=== PATIENT | female | born 1985 | race Caucasian/White ===

== ENCOUNTER 2016-04-11 07:24 | Inpatient (IN) | payer OTHER ==
[~2016-04-11] VITALS: Ht 167.6 cm; Wt 103.4 kg
[~2016-04-11 07:24] MED LIST: Docusate Sodium PO; Ibuprofen PO; Oxycodone/Acetaminophen PO; PREN-99 PO
[2016-04-11] MEDS ORDERED: Oxytocin 30 Units/500 mL LR Premix IV ONE (07:39)
[2016-04-11] MEDS ORDERED: Lactated Ringer's 1,000 ML IV PRN (07:42)
[2016-04-11] MEDS ORDERED: Lactated Ringer's 1,000 ML IV SCH (07:44)
[2016-04-11] MEDS ORDERED: Hemorrhage Kit, Post Partum XX ONE ×2 (07:45)
[2016-04-11] MEDS ORDERED: LANOlin HPA 7 Gm Ointment TOPICAL PRN (07:45)
[2016-04-11] MEDS ORDERED: Sodium Chloride LOK Flush 10 mL Syringe IVFLUSH PRN (07:45)
[2016-04-11] MEDS ORDERED: Witch Hazel-Glycerin Pads TOPICAL PRN (07:45)
[2016-04-11] MEDS ORDERED: Oxytocin 30 Units/500 mL LR 30 UNITS in IV Premix 1 EACH IV PRN (07:45)
[2016-04-11] MEDS ORDERED: Methylergonovine 0.2 mg/mL Inj IM PRN ×2 (07:45)
[2016-04-11] MEDS ORDERED: Oxytocin 10 Unit/mL Inj IM PRN ×2 (07:45)
[2016-04-11] MEDS ORDERED: Carboprost 250 mCg/mL Inj IM PRN ×2 (07:45)
[2016-04-11] MEDS ORDERED: Benzocaine (Dermoplast) 20% 60 Gm Spray TOPICAL PRN (07:45)
--- NOTE | 2016-04-11 08:02 | PCM.OBVAG ---
Vaginal Delivery Date of Service Apr 11, 2016 Pre Operative Diagnosis Pre Operative Diagnosis Term labor Post Operative Diagnosis Post Operative Diagnosis Vaginal after , delivered Procedure Obstetical Procedure: Normal Spontaneous Vaginal Delivery Patent Prosecution Attorney/Museum Librarian Provider and Museum Librarian: MD Susana Monique, Findings Obstetrical Findings: Jackson (Female), Cord (3 Vessel), Presentation (MALICK), 1 minute (9), 5 minutes (9), Placenta (Intact/Normal) Analgesia/Medications Procedural Analgesia: None Procedure Details Procedure Details Jinny is a 30yo G3 now P1102 who presented to the center via ambulance after she awoke with contractions at 5:00 on 04/11/16 which were initially 10 minutes apart, she then had sROM at 5:30 and her contractions became 3every 2 minutes. She and her got in the car to come to the hospital, but she had the urge to push and thus they called EMS who brought her here. On arrival to the center, she was found to be complete at 2+ station, monitoring with a baseline of 145, no decelerations. A sterile drape was placed under the patient's buttocks and with 4 pushes, she delivered head right occiput anterior over an intact perineum. Loose nuchal cord x1 was reduced easily. The rest of the body was then delivered. The baby was placed on maternal abdomen, skin to skin. Warming and stimulating maneuvers were applied to the vigorous female . After a minute, the cord was clamped, and cut. The was delivered at 7:35. The placenta then delivered spontaneously intact at 7:37 with a three vessel cord. Uterus firmed with manual external massage and pitocin IV. The perineum was examined and found to be intact. Sponge and instrument counts were correct x2 at the close of the procedure. The patient and infant tolerated the procedure well and pt is stable in her room. Blood Loss & Administration Estimated Blood Loss: 200 Post Procedure Plan Post delivery Condition: Mom ceferino Susana Nevarez DO Apr 11, 2016 08:02
--- NOTE | 2016-04-11 08:12 | PCM.HPOB ---
Subjective Date of Service: Apr 11, 2016 Referring Provider: Admitting Physician: Jaime Julien MD Primary Care Physician: Delilah Gutierrez MD Attending Physician: Jaime Julien MD History of Present History of Present Illness Jinny is a 30yo G3 now P1112 with a hx of , planning a for this who presented to the center via ambulance at 38 weeks and 1 day gestation after she awoke with contractions at 5:00 on 04/11/16 which were initially 10 minutes apart, she then had sROM at 5:30 which according to the patient was with clear fluid and her contractions became every 2 minutes. She and her got in the car to come to the hospital, but she had the urge to push and thus they called EMS who brought her here. On arrival to the center, she was found to be complete at 2+ station, monitoring with a baseline of 145, no decelerations. After 4 pushes, she delivered a vigorous female over an intact perineum. OB History: (3), Term (1), Pre-term (1), , Living (2) Past Medical History Obstetrical History: History of at 36weeks for labor and breech presentation Medical History: Asthma without used of steroids Hx Tobacco Use: No Smoking Status: Never Smoker Hx Alcohol Use: No Hx Substance Use: No Past Family History Living Arrangement: Other (Lives with her in [place]) Allergy Coded Allergies: No Known Allergies (Unverified , 12/23/13) Exam Constitutional: Well-developed, Well-nourished HEENT: Scleral Anicteric Lungs: Clear to Auscultation, Normal Air Movement Heart: Regular Rate/Rhythm, No Murmurs/Rubs/Gallops Extremities: Other (trace edema of the b/l lower legs) Labs/Diagnostics Maternal Blood Type: A (positive) Hx Rho(D) Immune Globulin: No Group B Strep Results: Negative Previous Infant with GBS: No Rubella: Immune Lab History: Negative for: Hx Chicken Pox (varicella immune), Hx Gonorrhea, Hx HIV, Hx Herpes, Hx Syphilis OB Intrapartum Assessment/Plan Assessment Jinny is doing well in the immediate period Problems: (1) , delivered, current hospitalization Status: Acute ICD Code: O34.21 (2) Active labor at term Status: Acute ICD Code: [id number] Pain Evaluation: Adequate Pain Control Post plan: Continue routine post care, Discharge home tomorrow Susana Nevarez DO Apr 11, 2016 08:02
[2016-04-11] MEDS: Ascorbic Acid 500 mg Tablet PO SCH ×2 (09:45→20:06)
[2016-04-12] MEDS: oxyCODONE-Acetamin 5-325 mg Tablet PO PRN ×2 (00:13→10:33)
[2016-04-12 06:43] LABS: Mean Corpuscular Volume 86.6 fL (81-100)
[2016-04-12] MEDS ORDERED: IBUP-1827 PO (08:04)
[2016-04-12] MEDS ORDERED: DOCU-41 PO (08:04)
--- NOTE | 2016-04-12 08:12 | PCM.PNOBPP ---
Subjective Date of Service Apr 12, 2016 Post : Vaginal Delivery after Ceserean Visit History Jinny is a 30yo G3 now P1112 with a hx of for breech labor, planning a for this who presented to the center via ambulance at 38 weeks and 1 day gestation after she awoke with contractions at 5 :00 on 04/11/16 which were initially 10 minutes apart, she then had sROM at 5:30 which according to the patient was with clear fluid and her contractions became every 2 minutes. She and her got in the car to come to the hospital, but she had the urge to push and thus they called EMS who brought her here. On arrival to the center, she was found to be complete at 2+ station, monitoring with a baseline of 145, no decelerations. After 4 pushes, she delivered a vigorous female infant at 7:35 over an intact perineum. Subjective Jinny has been eating without nausea, breast feeding her daughter, and urinating with ease. She would like to go home. Lochia: Normal Pain Management: PO pain meds Gastrointestinal: Good Appetite, No N/V Postop Activity: Ambulating Independently Group B Strep Results: Negative Rubella: Immune Blood Type: A RH Type: Positive Labs Laboratory Tests 04/11/16 08:42: Hold Purple Top Tube Received 04/12/16 05:59: White Blood Count 15.0, Red Blood Count 3.73, Hemoglobin 10.8, Hematocrit 32.3, Mean Corpuscular Volume 86.6, Mean Corpuscular Hemoglobin 29.0, Mean Corpuscular Hemoglobin Concent 33.4, Red Cell Distribution Width 12.7, Platelet Count 247 Exam Vital Signs Vital Signs BP 130/72mmHg HR 69 RR 16 Temp 36.6 Vital Signs: VS reviewed, stable Exam Abdomen: Fundus firm (1 fingerbreadth inferior to the umbilicus) : Voiding without difficulty Extremities: No tenderness/swelling Lungs: Clear to Auscultation, Normal Air Movement Heart: Regular Rate/Rhythm, No Murmurs/Rubs/Gallops General: Alert, Oriented X3, Cooperative, No Acute Distress OB Post Assessment/Plan Assessment Jinny is doing very well post Problems: (1) , delivered, current hospitalization Status: Acute ICD Code: O34.21 (2) Active labor at term Status: Acute ICD Code: [id number] Pain Evaluation: Adequate Pain Control Post plan: Continue routine post care, Anticipate discharge home today Attending Statement I saw patient and agree with above evaluation and plan Susana Nevarez DO Apr 12, 2016 08:12 Ariela Raymundo MD Apr 12, 2016 16:05
--- NOTE | 2016-04-12 08:16 | PCM.DIOB ---
Obstetrical Disch Instruction Date of Service: Apr 12, 2016 Dates of Hospitalization Date of Hospital Admission Apr 11, 2016 at 07:25 Providers Admitting Physician: Jaime Julien MD Primary Care Physician: Delilah Gutierrez MD Attending Physician: Jaime Julien MD Discharge Diagnosis Problems: (1) , delivered, current hospitalization Status: Acute ICD Code: O34.21 (2) Active labor at term Status: Acute ICD Code: [id number] Diet Discharge Diet: No restrictions Activity Discharge Activity-General: Pelvic Rest for 6 weeks, Try not to overdue, Be up and about, Balance rest and activity Dressing and Incisional Care Hygiene: May shower, NO bathtub, hot tub or whirlpool, Perineal care Additional Instructions Discharge Instructions Continue to take your once daily vitamin that has iron in it. For pain, take 1 tablet of ibuprofen every 6hours as needed. The iron can give you constipation so you have been given a prescription for docusate to keep you regular. Be sure to follow up [facility] weeks at [facility] post check Pelvic rest for 6 weeks (nothing per vagina including intercourse, tampons) If you have a fever greater than 100.4, please call [facility]. There is always someone control center operator to talk to. If you have an increase in bleeding, call [facility]. If you have a lot of bleeding suddenly, especially if you have symptoms of dizziness & weakness with it, get emergency help. If you start experiencing extreme depression, especially if you feel that you are a danger to yourself or your family, seek emergency help. You have been through a lot -- BE SURE TO TAKE CARE OF YOURSELF. Follow Up Plan Follow Up Plan Please call to schedule your 6 week post check, you may select a control option at that time. Follow-up Provider (F9): Jaime Julien MD Follow-up appointment: Weeks (6) Call your provider for: Fever or Chills, Shortness of breath, Heavy vaginal bleeding, Heavy bleeding, Epigastric pain, Excessive constipation, Vaginal discomfort, Red painful breasts Susana Nevarez DO Apr 12, 2016 08:16
--- NOTE | 2016-04-12 08:22 | PCM.DC.OB ---
Obstetrical Discharge Summary Date of Service Apr 12, 2016 Date of hospital admission Apr 11, 2016 at 07:25 Date of Discharge: Apr 12, 2016 Providers Admitting Physician: Jaime Julien MD Primary Care Physician: Delilah Gutierrez MD Attending Physician: Jaime Julien MD Problems: (1) , delivered, current hospitalization Status: Acute ICD Code: O34.21 (2) Active labor at term Status: Acute ICD Code: [id number] Brief History and Physical: Jinny is a 30yo G3 now P1112 with a hx of for labor with breech presentation, planning a for this who presented to the center via ambulance at 38 weeks and 1 day gestation after she awoke with contractions at 5:00 on 04/11/16 which were initially 10 minutes apart, she then had sROM at 5:30 which according to the patient was with clear fluid and her contractions became every 2 minutes. She and her got in the car to come to the hospital, however she had the urge to push and thus they called EMS who brought her here. On arrival to the center, she was found to be complete at 2+ station, monitoring with a baseline of 145, no decelerations. After 4 pushes, she delivered a vigorous female infant over an intact perineum. Jniny has done well with normal lochia, eating without nausea, passing flatus, with ease. Her vital signs have remained stable. Her uterine fundus is firm and inferior to the umbilicus. She does not have any pedal edema. ([Docusate Sodium]) 100 MG CAPSULE 100 MG PO BID PRN PRN For Constipation Prescribed by: GENARO LÓPEZ MD ([Ibuprofen]) 600 MG TABLET 600 MG PO Q6H PRN PRN For Pain Prescribed by: GENARO LÓPEZ MD ([Oxycodone/Acetaminophen]) 1 TAB TABLET 1-2 TAB PO Q4-6H PRN PRN For Pain Prescribed by: GEANRO LÓPEZ MD Docusate Sodium (Colace) 100 Mg Capsule 100 MG PO BID Prescribed by: SUSANA NEVAREZ DO Ibuprofen (Ibuprofen) 600 Mg Tablet 600 MG PO Q6H PRN PRN For Pain Prescribed by: SUSANA NEVAREZ DO Pnv95/Ferrous Fumarate/FA ( Multivitamins Tablet) 1 Each Tablet 1 EACH PO DAILY Prescribed by: GENARO LÓPEZ MD Disposition Home with her and daughter. Follow-up plan [address] Julien. Discharge Diet: No restrictions Discharge Activity-General: Pelvic Rest for 6 weeks, Try not to overdue, Be up and about, Balance rest and activity Patient instructions Continue to take your once daily vitamin that has iron in it. For pain, take 1 tablet of ibuprofen every 6hours as needed. The iron can give you constipation so you have been given a prescription for docusate to keep you regular. Be sure to follow up in 6 weeks at [facility] for a post check Pelvic rest for 6 weeks (nothing per vagina including intercourse, tampons) If you have a fever greater than 100.4, please call [facility]. There is always someone superintendent of generation to talk to. If you have an increase in bleeding, call [facility]. If you have a lot of bleeding suddenly, especially if you have symptoms of dizziness & weakness with it, get emergency help. If you start experiencing extreme depression, especially if you feel that you are a danger to yourself or your family, seek emergency help. You have been through a lot -- BE SURE TO TAKE CARE OF YOURSELF. Attending Statement: I saw patient and agree with above evaluation and plan Susana Nevarez DO Apr 12, 2016 08:21 Ariela Raymundo MD Apr 12, 2016 16:06
[2016-04-12] MEDS: Ascorbic Acid 500 mg Tablet PO SCH (08:23)
[2016-04-12 11:12] VITALS: BP 116/57; PULSE 72; RESP 16
--- NOTE | 2016-04-12 15:59 | NUR ---
note: Late entry from 1000. Mom says baby is spitty and sleepy and has not had a stool yet since delivery. Getting a shallow latch and worked with her to shape her breast tissue so baby gets a deeper latch.
== END 2016-04-12 16:07 | disposition home or self-care (01) | DRG 775 ==
LOC: FBCO 07:24 → FBC 07:25
PROVIDERS: ADMIT Legal Medicine; ATTEND Legal Medicine
PROC: 10E0XZZ Delivery of Products of Conception, External Approach (ICD-10-PCS; principal; 2016-04-11)
DX: O69.81X0 Labor and delivery complicated by cord around neck, without compression, not applicable or unspecified (principal); O34.211 Maternal care for low transverse scar from previous cesarean delivery; Z3A.38 38 weeks gestation of pregnancy; Z37.0 Single live birth